=== PATIENT | male | born 1940 | race Caucasian/White ===

== ENCOUNTER → 2016-10-05 | Outpatient (CLI) | payer OTHER ==
[~2016-10-05] MED LIST: ASPI81TA25 PO; CLC100X PO; CMD/25 PO; FERR324T PO; SENN8.6T2 PO; TAMS0.4C59 PO
--- NOTE | 2016-10-05 10:40 | DIAGNOSTIC IMAGING REPORT ---
MRI LUMBAR SPINE W/O CONTRAST CLINICAL HISTORY: SPINAL STENOSIS TECHNIQUE: Sagittal and axial T1, T2 and STIR images were obtained. COMPARISON STUDY: Conventional radiographic study dated 09/18/2016 OBSERVATIONS: There are postsurgical changes involving thoracic spinal rodding. There are no suspicious areas of marrow replacement to indicate occult fracture or neoplasm. There are bilateral T2 bright renal lesions, consistent with cysts. L1-2: There is a mild circumferential disc bulge. There is mild spinal stenosis. There is minor bilateral foraminal narrowing. L2-3: There is a mild circumferential disc bulge. There is mild spinal stenosis. There is mild bilateral foraminal narrowing L3-4: There is a mild circumferential disc bulge present. There is mild to moderate spinal stenosis. There is mild bilateral foraminal narrowing. L4-5: There is a circumferential disc bulge. There is mild to moderate spinal stenosis. There is moderate bilateral foraminal narrowing. L5-S1: There is a circumferential disc bulge. There is no significant spinal stenosis. There is no significant foraminal narrowing. Evaluation of the conus is limited due to artifact from the patient's thoracic spinal rods. 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 There is also multilevel foraminal narrowing most pronounced at the L4-5 level. Electronically signed by: Maged Glover M.D. 10/05/2016 10:39 AM Dictated Date/Time: 10/05/2016 10:35 AM
== END | disposition home or self-care (01) ==
LOC: C.MRI 09:25
PROVIDERS: ATTEND Orthopaedic Surgery Orthopaedic Surgery of the Spine
DX: M48.06 Spinal stenosis, lumbar region (principal)